=== PATIENT | male | born 1985 | race Two or more races ===

== ENCOUNTER 2025-03-27 03:19 | Inpatient (IN) | payer BC, OTHER ==
[~2025-03-27] VITALS: Ht 170.2 cm; Wt 60.1 kg
[2025-03-27 03:30] VITALS: O2SAT 96
[2025-03-27 05:44] LABS: BASOPHILS % 0.4 % (0.0-2.0); EOSINOPHILS % 0.3 % (0.0-5.0); HEMATOCRIT. 44.7 % (42.0-52.0); HEMOGLOBIN. 15.0 g/dL (14.0-18.0); LYMPHOCYTES % 9.1 % (20.0-50.0); MEAN PLATELET VOLUME 7.8 fl (7.4-10.4); MONOCYTES % 4.7 % (2.0-8.0); NEUTROPHILS % 85.5 % (40.0-76.0); PLATELET 295 x1000/uL (130-400); RED BLOOD CELL COUNT 4.75 mill/uL (4.7-6.1); RED CELL DISTRIBUTION WIDTH 13.1 % (11.6-14.6)
[2025-03-27] MEDS: OLANZAPINE 10 MG/VIAL IM ONE (05:52)
[2025-03-27 05:55] LABS: CREATININE 1.2 mg/dL (0.6-1.3); ETHANOL BLOOD < 10 mg/dL (<10); UREA NITROGEN BLOOD 6 mg/dL (9-23)
[2025-03-27 05:56] LABS: ASPARTATE AMINOTRANSFERASE 25 IU/L (<34)
[2025-03-27 05:57] LABS: BILIRUBIN DIRECT 0.3 mg/dL (<=3.0); BILIRUBIN TOTAL 1.0 mg/dL (0.1-1.0); PROTEIN TOTAL 7.4 g/dL (6.0-8.3)
[2025-03-27] MEDS: SODIUM CHLORIDE 0.9% 1,000 ML IV ONE ×3 (06:00→16:00)
[2025-03-27] MEDS ORDERED: GUAIFENESIN 200MG/10ML SUGAR FREE UDC PO PRN (10:00)
[2025-03-27] MEDS ORDERED: ONDANSETRON HCL 4MG/2ML INJ IV PRN (10:00)
[2025-03-27] MEDS ORDERED: CLONIDINE 0.1MG TABLET PO PRN (10:00)
[2025-03-27] MEDS ORDERED: LORAZEPAM 2MG/ML UD SYRINGE IV PRN ×2 (10:00→11:30)
[2025-03-27] MEDS ORDERED: IPRATROPIUM/ALBUTEROL 0.5-3(2.5)MG/3ML NEB HHN PRN (10:00)
[2025-03-27] MEDS ORDERED: ACETAMINOPHEN 325MG TABLET PO PRN ×2 (10:00)
[2025-03-27] MEDS ORDERED: DEXTROSE 50% WATER 50ML SYRINGE IV PRN (10:15)
[2025-03-27] MEDS: MULTIVITAMINS,THER W-MINERALS TABLET PO SCH (10:30)
[2025-03-27] MEDS: THIAMINE HCL 100MG TABLET PO SCH (10:30)
[2025-03-27] MEDS: FOLIC ACID 1MG TABLET PO SCH (10:30)
[2025-03-27] MEDS: DEXT 5%/0.45% NACL 1000ML 1,000 ML IV SCH (10:43)
[2025-03-27] MEDS: PANTOPRAZOLE SODIUM 40 MG/VIAL IV SCH (10:43)
[2025-03-27 10:51] LABS: PHOSPHORUS 2.3 mg/dL (2.5-4.9)
[2025-03-27 10:55] LABS: FOLIC ACID (FOLATE) SERUM 13.31 ng/mL (>5.38); VITAMIN B12 SERUM 495 pg/mL (211-911)
[2025-03-27] MEDS ORDERED: POTASSIUM PHOSPHATE 10 MMOL in DEXT 5% WATER 246.6667 ML IV NR (11:30)
[2025-03-27 12:00] VITALS: BP 95/51; PULSE 79; RESP 19; TEMP 36.3; TEMP 36.3624; O2SAT 99
[2025-03-27 16:00] VITALS: BP 130/79; PULSE 80; RESP 17; TEMP 36.4; O2SAT 98
[2025-03-27 20:00] VITALS: PULSE 82; RESP 18
[2025-03-28] VITALS: BP 133/80; PULSE 83; RESP 18; TEMP 36.4; O2SAT 98
[2025-03-28 04:00] VITALS: PULSE 88; RESP 18; O2SAT 97
[2025-03-28 08:42] LABS: BASOPHILS % 0.7 % (0.0-2.0); EOSINOPHILS % 2.8 % (0.0-5.0); HEMATOCRIT. 42.6 % (42.0-52.0); HEMOGLOBIN. 14.2 g/dL (14.0-18.0); LYMPHOCYTES % 35.8 % (20.0-50.0); MEAN PLATELET VOLUME 7.6 fl (7.4-10.4); MONOCYTES % 11.2 % (2.0-8.0); NEUTROPHILS % 49.5 % (40.0-76.0); PLATELET 259 x1000/uL (130-400); RED BLOOD CELL COUNT 4.48 mill/uL (4.7-6.1); RED CELL DISTRIBUTION WIDTH 12.9 % (11.6-14.6)
[2025-03-28 08:52] LABS: CREATININE 1.1 mg/dL (0.6-1.3); TRIGLYCERIDE 90 mg/dL (0-150); UREA NITROGEN BLOOD 6 mg/dL (9-23)
[2025-03-28 08:53] LABS: INR 1.1; LDL CHOLESTEROL 65 mg/dL (5-100)
[2025-03-28 08:56] LABS: T4 FREE 1.15 ng/dL (0.89-1.76)
[2025-03-28 09:31] LABS: HEPATITIS A AB IGM NEGATIVE (Negative)
[2025-03-28 09:32] LABS: HEPATITIS B CORE AB IGM NEGATIVE (Negative); HEPATITIS C AB NON REACTIVE (Neg) (Negative)
[2025-03-28] MEDS: DEXT 5%/0.45% NACL 1000ML 1,000 ML IV ONE (10:51)
[2025-03-28] MEDS: ENOXAPARIN 40MG/0.4ML SYR SUBCUT SCH (10:51)
== END 2025-03-28 12:55 | disposition left against medical advice (07) | DRG 917 ==
LOC: ER 03:45 → 6WST 07:15 → EDBEDREQ 07:51 → EDBEDREQTM 07:51 → ENRESERV 11:05
PROVIDERS: ADMIT Internal Medicine; ATTEND Internal Medicine
DX: T43.651A Poisoning by methamphetamines accidental (unintentional), initial encounter (principal); G92.9 Unspecified toxic encephalopathy; E87.0 Hyperosmolality and hypernatremia; F10.939 Alcohol use, unspecified with withdrawal, unspecified; R65.10 Systemic inflammatory response syndrome (SIRS) of non-infectious origin without acute organ dysfunction; G25.3 Myoclonus; Z20.822 Contact with and (suspected) exposure to COVID-19; E83.39 Other disorders of phosphorus metabolism; D75.89 Other specified diseases of blood and blood-forming organs; R56.9 Unspecified convulsions; Z53.29 Procedure and treatment not carried out because of patient's decision for other reasons; Y90.0 Blood alcohol level of less than 20 mg/100 ml; Y92.89 Other specified places as the place of occurrence of the external cause
CPT/HCPCS: 36415; 71045; 80048; 80061; 80076; 80307; 80320; 80329; 82140; 82550; 82607; 82746; 82962; 83735; 84100; 84145; 84439; 84443; 85025; 86705; 86709; 87340; 87426; 99285; J2060; J2470; J3490; J7030; J7060; G0480